=== PATIENT | female | born 1970 | race Caucasian/White ===

== ENCOUNTER 2018-06-18 08:33 | Day surgery (SDC) | payer OTHER, SELFPAY ==
[2018-06-12 12:42] VITALS: BMI 28.7
[2018-06-18] VITALS (10 sets, daily range): BP systolic 95–108; BP diastolic 60–75; PULSE 62–85; RESP 14–20; TEMP 36–36.8; O2SAT 95–100; BMI 28.7
[2018-06-18] MEDS: LACTATED RINGERS 1,000 ML 100 ML IV (08:50)
[2018-06-18] MEDS: BUPIVACAINE 0.5% W/ EPI (PF) VIAL 10 ML INJ (10:00)
--- NOTE | 2018-06-18 10:01 | SUR.OPER ---
Lithotomy on padded OR bed, head on pillow, arms secured on padded arm boards at <90 degrees abduction. Legs secured in padded yellow fins stirrups.
[2018-06-18] MEDS: HYDROMORPHONE 2 MG INJ 0.5 MG IV ×3 (10:20→10:50)
--- NOTE | 2018-06-18 10:24 | PM.OP.1 ---
Operative Date/Time/Diagnoses Date of procedure: 06/18/18 Time of procedure: 10:25 Pre-op diagnosis: pelvic pain possible endometriosis Post-op diagnosis: other ( normal pelvis without any evidence of abnormality) Procedure & Clinicians Procedure: diagnostic laparoscopy Same procedure as scheduled: Yes Indications: patient with increasing pelvic pain and dysmenorrhea as well as dyspareunia Surgeon: Juany Morales Click Yes if Unassisted: Yes Anesthesia Type: General Operative Notes Findings: Normal intra-abdominal cavity. No endometriosis, no scar tissue, no internal hernias, normal bowel surface, liver edge, gallbladder dome, appendix. normal appearance to the uterus externally except for small subserosal fibroid posterior wall. Normal fallopian tubes and ovaries. Closure Type: primary Specimen(s): none sent Estimated Blood Loss (mL): 1 Blood products transfused: none Procedure in detail: Patient was brought to the operating room where she underwent general anesthesia. She was placed in low yellowfin stirrups and prepped and draped in usual sterile fashion. No antibiotics were indicated. Pulsatile stockings were in place and functional. Warming was with blankets. A single-tooth tenaculum was placed on the anterior lip of the cervix and the cervix dilated to #6 Hegar dilator. The Sandra uterine manipulator was placed and balloon inflated with 3 mL of air. The area of the incisions were injected with half percent Marcaine with epinephrine. An incision was made in the umbilicus with a scalpel and the Verres needle placed in the abdomen. Confirmation of correct placement of the needle was performed by withdrawing on the syringe and then allowing fluid to fall freely through the needle. The abdomen was insufflated to 4 L of CO2. A 5 mm trocar was placed under direct visualization. The abdomen was examined. The CO2 was allowed to escape from the abdomen. The trochar was removed. Skin was closed with 4-0 Monocryl. The patient went to recovery room in good condition. Complications: none Condition: stable Disposition: same day surgery Plan for aftercare: follow-up in 10 days. Routine post laparoscopy care.
[2018-06-18] MEDS: OXYCODONE/ACETAMINOPHEN 5/325 TABLET 1 TAB PO ×2 (10:58→11:30)
[2018-06-18] MEDS: hydrOXYzine 50 MG/ML INJ IM (12:57)
--- NOTE | 2018-06-18 12:58 | SUR.PHASEII ---
pt c\o 8\10 pain after 2 percocett- dr maxwell notified and vistaril given per MD order
== END 2018-06-18 13:10 | disposition home or self-care (01) ==
PROVIDERS: PCP Family Medicine; Visit Provider Specialist
PROC: 0U5B4ZZ Destruction of Endometrium, Percutaneous Endoscopic Approach (ICD-10-PCS; CPT 58662; principal; 2018-06-18 09:45)
DX: D25.2 Subserosal leiomyoma of uterus (principal); Z87.891 Personal history of nicotine dependence
CPT/HCPCS: 49320; J0330; J1100; J1170; J1885; J2405; J2704; J3010; J3410

== ENCOUNTER 2018-08-28 12:45 | Outpatient (RCR) | payer OTHER, SELFPAY ==
--- NOTE | 2018-07-14 14:00 | PT.OIE ---
Current Diagnoses Muscle weakness (generalized) (07/14/18) Other specified disorders of muscle (07/14/18) Unspecified dyspareunia (07/14/18) Other symptoms and signs involving the musculoskeletal system (07/14/18) Other reduced mobility (07/14/18) Past Medical History (Last Updated 06/12/18 @ 12:48 by Mackenzie Phillip RN) Constipation (Acute) Anxiety (Chronic) Chronic headaches (Chronic) Depression (Chronic) History of heavy periods (Chronic 2016) PTSD (post-traumatic stress disorder) (Chronic) Painful menstrual periods (Chronic 2016) Shoulder pain (Chronic 2012) Substance abuse (Chronic) Fracture of right tibia and fibula (Resolved 2005) Fractures (Resolved 2005) Past Surgical History (Last Updated 07/04/18 @ 12:11 by Charis Landrum LPN) Hx of cystoscopy (Acute) Anesthesia (Resolved) History of orthopedic surgery (Resolved 2005) History of third molar tooth extraction (Resolved) S/P laparoscopic procedure (Resolved 06/18/18) Status post tonsillectomy and adenoidectomy (Resolved) Provider Visit Care Team Role Provider Type Figueroa Gann MD Primary Care Provider Physician Specialty: Family Practice Address: [address], [address] Email: Nellie Luis MD Attending Provider Physician Specialty: TASSEL SNIPPER Address: [address] [place] [address], [facility] Email: [email or web address] Physical Therapy Initial Evaluation PT-OP-A Visit Information Start: 07/14/18 10:18 Freq: Status: Active Protocol: Document 07/14/18 11:17 LRN (Rec: 07/14/18 11:32 LRN [id number]) Out-Patient Physical Therapy Visit Information Visit Information Visit Type Initial Evaluation Visit Note visits Visit Start Time 11:17 Visit Stop Time 12:10 Total Visit Minutes 53 Visit Number 1 Number of LINING CUTTER Visits 0 Evaluation Information Evaluation Date 07/14/18 PT-OP-B Current Condition Start: 07/14/18 10:18 Freq: Status: Active Protocol: Document 07/14/18 11:17 LRN (Rec: 07/14/18 11:32 LRN [id number]) Current Condition History of Current Condition Onset Date 2.5 yrs ago Current Complaints Abdominal and PF pain, pain with intercourse. History of Current Condition Pt reports she has interstitial cystitis that results in intolerable discomfort intermittently. She states for the past few weeks her pain has been tolerable. She can feel pressure in her lower abdomen and denies pain with urination . She lives in fear of the next flare up; therefore she has not been able to have intercourse. She states she is trying to work on herself and to not live in a negative head space. Uses bathroom a lot due to she drinks lots of water. When in a flare up she has constant pain in the lower pelvic region, feeling of need to urinate and pain with urination. Can be 1-2 months. Has used percocet a few months, Oxybutin, A Prior Treatments and Tests Treatments for UTI's. Laproscopy: findings of endometriosis. Treatment for Depression during pain flare ups. Future Testing and Treatments Planned She is scheduled to see an IC specialist at at end of this month. Developmental History Developmental History Pt has felt like she has had UTI's her entire life, but a year and a half ago she discovered that the UTI symptoms she was having was negative for a UTI. In 2017 she states she was bleeding for 6 months and was scheduled for a hysterectomy, but chose not to have it. She stopped her hormone medications and states her bleeding stopped. She reoports in 2018 she suffered heavy bleeding for 10 days and a laproscopy found she had small cysts and endometriosis. She is currently taking Oxybutyin, Anatryptoline, IBP and has taken Percocet for a month. Treatment Goals Patient/Caregiver Goals Goal is to thin pelvic area and gain understanding of IC. Learn techniques to help herself. Doing nothing isn't helping. Prior Functional Status Baseline Function- Work/School Leave from work from Mid May to Jul 07, 2018. Baseline Function- Other WNL with all activities except intercourse, not able to participate. Personal Factors Other Personal Factors That May Effect Works on [employer]. 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 PT-OP-I Pelvic Floor Start: 07/14/18 10:18 Freq: Status: Active Protocol: Document 07/14/18 11:17 LRN (Rec: 07/14/18 16:01 LRN [id number]) Pelvic Floor Assessment Urine Pelvic Floor Surgery No Urinary Symptoms Falling Out Feeling/Heavy Other Urinary Symptoms Falling out feeling & pressure during flare ups, present all day. Leakage Cause Cough Other Leakage Causes Light activity, strong urge, intercourse. Voiding Frequency 20x/day Nocturia Voids 2x during the night Urine Pad Type Panty Liner Pelvic Clock Pelvic Clock 12-3 Tenderness Tightness Pelvic Clock 3-6 Tenderness Tightness Pelvic Clock Other Soft tissue spongy feel of Pelvic Clock 1-6. Contraction Ability Voluntary Contraction Weak Manual Muscle Testing Left 2 Manual Muscle Testing Right 0 Manual Muscle Testing Anterior 0 Manual Muscle Testing Posterior 2 PT-OP-J Posture/Palpation/Skin Start: 07/14/18 10:18 Freq: Status: Active Protocol: Document 07/14/18 11:17 LRN (Rec: 07/14/18 16:01 LRN [id number]) Posture Evaluation Position Standing Evaluation View All positionss T-Spine Posture Flattened L-Spine Posture Increased Lordosis Shoulder Posture (R) Elevated Pelvis Posture (L) Iliac Crest Superior (L) PSIS Posterior (L) PSIS Inferior (R) ASIS Inferior Weight Distribution Weight Shifted Anterior Ankle/Foot Posture (L) Calcaneal Eversion (R) Calcaneal Eversion Comments Posture Comments C Curve of lower Thoracic spine with apex on Left. Umbilicus is shifted Left or outflare R innominate. Prone: PSIS level -> NOEMI: L PSIS is deep. Supine: R leg long -> Long Sit : Leg lengths even. Palpation Assessment Location Abdomen Palpation Location Left Abdomen and hip Palpation Findings Soft Tissue Tightness PT-OP-K Range of Motion Start: 07/14/18 10:18 Freq: Status: Active Protocol: Document 07/14/18 11:17 LRN (Rec: 07/14/18 16:01 LRN [id number]) Hip Goniometric Range of Motion Hip Measured in Degrees Right Passive Testing Position Supine Abduction 35 Internal Rotation 50 External Rotation 55 Left Passive Testing Position Supine Abduction 30 Internal Rotation 50 External Rotation 55 Hip ROM Limitations Hip ROM Limitations Soft Tissue Tightness Pain PT-OP-M Strength Start: 07/14/18 10:18 Freq: Status: Active Protocol: Document 07/14/18 11:17 LRN (Rec: 07/14/18 16:01 LRN [id number]) Trunk Strength Trunk Manual Muscle Testing Rotation Left 3 Fair Core Stabilization Pt not able to stabilize the core with testing of R hip ext strength (stabilizes with testing of L hip) and hip flexion; therefore L trunk rotation weakness is noted. Hip Strength Hip Manual Muscle Testing Right Comments Generally 5/5. Left Comments Generally 5/5. PT-OP-Q Treatments Start: 07/14/18 10:18 Freq: Status: Active Protocol: Document 07/14/18 11:17 LRN (Rec: 07/14/18 16:01 LRN [id number]) Therapeutic Exercises Supine Exercises Sympathetic system downtraining Supine Exercise Name Deep Breathing Reps/Minutes 2' Lateral Hip stretch Side left Comments Reviewed with handout Piriformis stretch Supine Exercise Name Piriformis stretch with hip ER Side right Comments Reviewed with handout Fig 4 stretch Side left Reps/Minutes 1' Sciatic n. stretch Side left Comments Reviewed with handout Self-Care/Home Management Treatment Education Patient Education Home Exercise Program Activities Self-Care/Home Management Activities HEP issued: LE neural glide, Fig 4 stretch, Piriformis ( with ER & with AD) stretch, Deep breathing. PT-OP-T Assessment and Plan Start: 07/14/18 10:18 Freq: Status: Active Protocol: Document 07/14/18 11:17 LRN (Rec: 07/14/18 16:01 LRN [id number]) Physical Therapy Assessment Rehab Potential Rehabilitation Potential Fair Evaluation Complexity Number of Personal Factors/Comorbidities 1-2 Number of Body Systems Impaired 4 or More Clinical Presentation at Evaluation Evolving Impairments Impairments Activity Tolerance Pain Posture ROM Soft Tissue Mobility Strength Other Impairments Urinary incontinence during abdominal pain flare ups. 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 Barriers to Rehabilitation Commuting from [facility] FT work Comorbidities - Intermittent Heavy bleeding Goals Five Impairment Postural changes Short Term Goal (STG) Pt will demonstrate improved pelvic and trunk posture with normalizing pelvic position and umbilical positioning. STG Duration 08/01/18 Four Impairment Symptoms of High Sympathetic Tone Short Term Goal (STG) Pt will be educated in self care techniques to downtrain her sympathetic system during times of stress and pain. STG Duration 08/15/18 Three Impairment Poor awareness of Pelvic Floor and muscle contractions Snf Goal (LTG) Pt will be able to identify proper pelvic floor and perform a PF contraction with a notable relaxation phase. 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 LTG Duration 10/10/18 One Impairment Lack of appropriate self skilled nursing program Snf Goal (LTG) Pt will be educated in an independent self care program to help her manage her pain. LTG Duration 10/10/18 Assessment Summary Assessment Pt presents today with no significant complaints of pelvic pain. She is currently not experiencing an interstitial cystitis flare up . She does appear to have a pelvic obliquity of a possible R innominate downslip and/or an anteriorly rotated and outflared innominate. Her R SIJ appears to be stuck in flexion. She has soft tissue tightness in the lower abdominal region with a L shift of her umbilicus and she has LE neural tension bilaterally. She is anxious and concerned when her next flare up will start and therefore appears to be in a high sympathetic tone state. She has difficulty with performing deep breathing properly, also indicating high sympathetic tone. Her pelvic floor has a spongy feel and is tender per digital assessment. The patient will benefit from skilled phyiscal therapy for education in use and home use of E-Stim to help manage her pain and for education to downtrain her sympathetic system. She will also benefit from education in dietary changes. She feels her primary concerns are managing her IC symptoms, but the pt would benefit from PF strengthening and manual therapy with exercise to improve posture and pelvic symmetry. The pt may require a longer rehabilitation program due to her travel, family and work challenges. Physical Therapy Plan Frequency and Duration Frequency of Treatment 1x/Week Plan of Care Start Date 07/14/18 Plan of Care End Date 10/10/18 Therapeutic Interventions Therapeutic Interventions Self-Care/Home Management Modalities Biofeedback Cold Pack/Ice Massage Electric Stimulation Hot Packs Ultrasound Next Visit Focus/Plan Next Note Type Treatment Note Next Visit Plan Review HEP issued, JMT & STM for correction of pelvic obliquities and abdominal soft tissue tightness. PF assessment per vaginal electrode, and try E-Stim if pain present. Progress home program of ex's.
--- NOTE | 2018-07-14 14:00 | PT.OIE ---
Current Diagnoses Muscle weakness (generalized) (07/14/18) Other specified disorders of muscle (07/14/18) Unspecified dyspareunia (07/14/18) Other symptoms and signs involving the musculoskeletal system (07/14/18) Other reduced mobility (07/14/18) Past Medical History (Last Updated 06/12/18 @ 12:48 by Mackenzie Phillip RN) Constipation (Acute) Anxiety (Chronic) Chronic headaches (Chronic) Depression (Chronic) History of heavy periods (Chronic 2016) PTSD (post-traumatic stress disorder) (Chronic) Painful menstrual periods (Chronic 2016) Shoulder pain (Chronic 2012) Substance abuse (Chronic) Fracture of right tibia and fibula (Resolved 2005) Fractures (Resolved 2005) Past Surgical History (Last Updated 07/04/18 @ 12:11 by Charis Landrum LPN) Hx of cystoscopy (Acute) Anesthesia (Resolved) History of orthopedic surgery (Resolved 2005) History of third molar tooth extraction (Resolved) S/P laparoscopic procedure (Resolved 06/18/18) Status post tonsillectomy and adenoidectomy (Resolved) Provider Visit Care Team Role Provider Type Figueroa Gann MD Primary Care Provider Physician Specialty: Family Practice Address: [address], [address] Email: Nellie Luis MD Attending Provider Physician Specialty: TALENT ACQUISITION RELATIONSHIP MANAGER Address: [address] [place] [address], [facility] Email: [email or web address] Physical Therapy Initial Evaluation PT-OP-A Visit Information Start: 07/14/18 10:18 Freq: Status: Active Protocol: Document 07/14/18 11:17 LRN (Rec: 07/14/18 11:32 LRN [id number]) Out-Patient Physical Therapy Visit Information Visit Information Visit Type Initial Evaluation Visit Note visits Visit Start Time 11:17 Visit Stop Time 12:10 Total Visit Minutes 53 Visit Number 1 Number of SCREEN OPERATOR Visits 0 Evaluation Information Evaluation Date 07/14/18 PT-OP-B Current Condition Start: 07/14/18 10:18 Freq: Status: Active Protocol: Document 07/14/18 11:17 LRN (Rec: 07/14/18 11:32 LRN [id number]) Current Condition History of Current Condition Onset Date 2.5 yrs ago Current Complaints Abdominal and PF pain, pain with intercourse. History of Current Condition Pt reports she has interstitial cystitis that results in intolerable discomfort intermittently. She states for the past few weeks her pain has been tolerable. She can feel pressure in her lower abdomen and denies pain with urination . She lives in fear of the next flare up; therefore she has not been able to have intercourse. She states she is trying to work on herself and to not live in a negative head space. Uses bathroom a lot due to she drinks lots of water. When in a flare up she has constant pain in the lower pelvic region, feeling of need to urinate and pain with urination. Can be 1-2 months. Has used percocet a few months, Oxybutin, A Prior Treatments and Tests Treatments for UTI's. Laproscopy: findings of endometriosis. Treatment for Depression during pain flare ups. Future Testing and Treatments Planned She is scheduled to see an IC specialist at at end of this month. Developmental History Developmental History Pt has felt like she has had UTI's her entire life, but a year and a half ago she discovered that the UTI symptoms she was having was negative for a UTI. In 2017 she states she was bleeding for 6 months and was scheduled for a hysterectomy, but chose not to have it. She stopped her hormone medications and states her bleeding stopped. She reoports in 2018 she suffered heavy bleeding for 10 days and a laproscopy found she had small cysts and endometriosis. She is currently taking Oxybutyin, Anatryptoline, IBP and has taken Percocet for a month. Treatment Goals Patient/Caregiver Goals Goal is to thin pelvic area and gain understanding of IC. Learn techniques to help herself. Doing nothing isn't helping. Prior Functional Status Baseline Function- Work/School Leave from work from Mid May to Jul 07, 2018. Baseline Function- Other WNL with all activities except intercourse, not able to participate. Personal Factors Other Personal Factors That May Effect Works on [employer]. 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 FT PT-OP-F Manual Assessment Start: 07/14/18 10:18 Freq: Status: Active Protocol: Document 07/14/18 11:17 LRN (Rec: 07/14/18 16:01 LRN [id number]) Manual Assessments Soft Tissue Assessment Soft Tissue Mobility Assessment Decreased tissue mobility of L abdomen, lateral and posterior trunk. PT-OP-I Pelvic Floor Start: 07/14/18 10:18 Freq: Status: Active Protocol: Document 07/14/18 11:17 LRN (Rec: 07/14/18 16:01 LRN [id number]) Pelvic Floor Assessment Urine Pelvic Floor Surgery No Urinary Symptoms Falling Out Feeling/Heavy Other Urinary Symptoms Falling out feeling & pressure during flare ups, present all day. Leakage Cause Cough Other Leakage Causes Light activity, strong urge, intercourse. Voiding Frequency 20x/day Nocturia Voids 2x during the night Urine Pad Type Panty Liner Pelvic Clock Pelvic Clock 12-3 Tenderness Tightness Pelvic Clock 3-6 Tenderness Tightness Pelvic Clock Other Soft tissue spongy feel of Pelvic Clock 1-6. Contraction Ability Voluntary Contraction Weak Manual Muscle Testing Left 2 Manual Muscle Testing Right 0 Manual Muscle Testing Anterior 0 Manual Muscle Testing Posterior 2 PT-OP-J Posture/Palpation/Skin Start: 07/14/18 10:18 Freq: Status: Active Protocol: Document 07/14/18 11:17 LRN (Rec: 07/14/18 16:01 LRN [id number]) Posture Evaluation Position Standing Evaluation View All positionss T-Spine Posture Flattened L-Spine Posture Increased Lordosis Shoulder Posture (R) Elevated Pelvis Posture (L) Iliac Crest Superior (L) PSIS Posterior (L) PSIS Inferior (R) ASIS Inferior Weight Distribution Weight Shifted Anterior Ankle/Foot Posture (L) Calcaneal Eversion (R) Calcaneal Eversion Comments Posture Comments C Curve of lower Thoracic spine with apex on Left. Umbilicus is shifted Left or outflare R innominate. Prone: PSIS level -> NOEMI: L PSIS is deep. Supine: R leg long -> Long Sit : Leg lengths even. Palpation Assessment Location Abdomen Palpation Location Left Abdomen and hip Palpation Findings Soft Tissue Tightness PT-OP-K Range of Motion Start: 07/14/18 10:18 Freq: Status: Active Protocol: Document 07/14/18 11:17 LRN (Rec: 07/14/18 16:01 LRN [id number]) Hip Goniometric Range of Motion Hip Measured in Degrees Right Passive Testing Position Supine Abduction 35 Internal Rotation 50 External Rotation 55 Left Passive Testing Position Supine Abduction 30 Internal Rotation 50 External Rotation 55 Hip ROM Limitations Hip ROM Limitations Soft Tissue Tightness Pain PT-OP-M Strength Start: 07/14/18 10:18 Freq: Status: Active Protocol: Document 07/14/18 11:17 LRN (Rec: 07/14/18 16:01 LRN [id number]) Trunk Strength Trunk Manual Muscle Testing Rotation Left 3 Fair Core Stabilization Pt not able to stabilize the core with testing of R hip ext strength (stabilizes with testing of L hip) and hip flexion; therefore L trunk rotation weakness is noted. Hip Strength Hip Manual Muscle Testing Right Comments Generally 5/5. Left Comments Generally 5/5. PT-OP-Q Treatments Start: 07/14/18 10:18 Freq: Status: Active Protocol: Document 07/14/18 11:17 LRN (Rec: 07/14/18 16:01 LRN [id number]) Therapeutic Exercises Supine Exercises Sympathetic system downtraining Supine Exercise Name Deep Breathing Reps/Minutes 2' Lateral Hip stretch Side left Comments Reviewed with handout Piriformis stretch Supine Exercise Name Piriformis stretch with hip ER Side right Comments Reviewed with handout Fig 4 stretch Side left Reps/Minutes 1' Sciatic n. stretch Side left Comments Reviewed with handout Self-Care/Home Management Treatment Education Patient Education Home Exercise Program Activities Self-Care/Home Management Activities HEP issued: LE neural glide, Fig 4 stretch, Piriformis ( with ER & with AD) stretch, Deep breathing. PT-OP-T Assessment and Plan Start: 07/14/18 10:18 Freq: Status: Active Protocol: Document 07/14/18 11:17 LRN (Rec: 07/14/18 16:01 LRN [id number]) Physical Therapy Assessment Rehab Potential Rehabilitation Potential Fair Evaluation Complexity Number of Personal Factors/Comorbidities 1-2 Number of Body Systems Impaired 4 or More Clinical Presentation at Evaluation Evolving Impairments Impairments Activity Tolerance Pain Posture ROM Soft Tissue Mobility Strength Other Impairments Urinary incontinence during abdominal pain flare ups. 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 Barriers to Rehabilitation Commuting from [facility] FT work Comorbidities - Intermittent Heavy bleeding Goals Five Impairment Postural changes Short Term Goal (STG) Pt will demonstrate improved pelvic and trunk posture with normalizing pelvic position and umbilical positioning. STG Duration 08/01/18 Four Impairment Symptoms of High Sympathetic Tone Short Term Goal (STG) Pt will be educated in self care techniques to downtrain her sympathetic system during times of stress and pain. STG Duration 08/15/18 Three Impairment Poor awareness of Pelvic Floor and muscle contractions Long-Term Goal (LTG) Pt will be able to identify proper pelvic floor and perform a PF contraction with a notable relaxation phase. LTG Duration 10/10/18 Two Impairment Pelvic pain Superintendent Meters Goal (LTG) Decrease pelvic pain during interstitial cystitis flare ups with pt being able to tolerate working. LTG Duration 10/10/18 One Impairment Lack of appropriate self [facility] program Long-Term Goal (LTG) Pt will be educated in an independent self care program to help her manage her pain. LTG Duration 10/10/18 Assessment Summary Assessment Pt presents today with no significant complaints of pelvic pain. She is currently not experiencing an interstitial cystitis flare up . She does appear to have a pelvic obliquity of a possible R innominate downslip and/or an anteriorly rotated and outflared innominate. Her R SIJ appears to be stuck in flexion. She has soft tissue tightness in the lower abdominal region with a L shift of her umbilicus and she has LE neural tension bilaterally. She is anxious and concerned when her next flare up will start and therefore appears to be in a high sympathetic tone state. She has difficulty with performing deep breathing properly, also indicating high sympathetic tone. Her pelvic floor has a spongy feel and is tender per digital assessment. The patient will benefit from skilled phyiscal therapy for education in use and home use of E-Stim to help manage her pain and for education to downtrain her sympathetic system. She will also benefit from education in dietary changes. She feels her primary concerns are managing her IC symptoms, but the pt would benefit from PF strengthening and manual therapy with exercise to improve posture and pelvic symmetry. The pt may require a longer rehabilitation program due to her travel, family and work challenges. Physical Therapy Plan Frequency and Duration Frequency of Treatment 1x/Week Plan of Care Start Date 07/14/18 Plan of Care End Date 09/12/18 Therapeutic Interventions Therapeutic Interventions Self-Care/Home Management Modalities Biofeedback Cold Pack/Ice Massage Electric Stimulation Hot Packs Ultrasound Next Visit Focus/Plan Next Note Type Treatment Note Next Visit Plan Review HEP issued, JMT & STM for correction of pelvic obliquities and abdominal soft tissue tightness. PF assessment per vaginal electrode, and try E-Stim if pain present. Progress home program of ex's.
--- NOTE | 2018-07-14 14:01 | PT.OPPOC ---
Current Diagnoses Muscle weakness (generalized) (07/14/18) Other specified disorders of muscle (07/14/18) Unspecified dyspareunia (07/14/18) Other symptoms and signs involving the musculoskeletal system (07/14/18) Other reduced mobility (07/14/18) Provider Visit Care Team Role Provider Type Figueroa Gann MD Primary Care Provider Physician Specialty: Family Practice Address: [address], [address] Email: Nellie Luis MD Attending Provider Physician Specialty: DIRECTOR OF CURRICULUM AND INSTRUCTION Address: [address] [place] [address], [id number] Email: [email or web address] Plan Of Care PT-OP-T Assessment and Plan Start: 07/14/18 10:18 Freq: Status: Active Protocol: Document 07/14/18 11:17 LRN (Rec: 07/14/18 16:01 LRN [id number]) Physical Therapy Assessment Rehab Potential Rehabilitation Potential Fair Evaluation Complexity Number of Personal Factors/Comorbidities 1-2 Number of Body Systems Impaired 4 or More Clinical Presentation at Evaluation Evolving Impairments Impairments Activity Tolerance Pain Posture ROM Soft Tissue Mobility Strength Other Impairments Urinary incontinence during abdominal pain flare ups. 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 Barriers to Rehabilitation Commuting from [facility] FT work Comorbidities - Intermittent Heavy bleeding Goals Five Impairment Postural changes Short Term Goal (STG) Pt will demonstrate improved pelvic and trunk posture with normalizing pelvic position and umbilical positioning. STG Duration 08/01/18 Four Impairment Symptoms of High Sympathetic Tone Short Term Goal (STG) Pt will be educated in self care techniques to downtrain her sympathetic system during times of stress and pain. STG Duration 08/15/18 Three Impairment Poor awareness of Pelvic Floor and muscle contractions Law Clerk Goal (LTG) Pt will be able to identify proper pelvic floor and perform a PF contraction with a notable relaxation phase. LTG Duration 10/10/18 Two Impairment Pelvic pain Law Clerk Goal (LTG) Decrease pelvic pain during interstitial cystitis flare ups with pt being able to tolerate working. LTG Duration 10/10/18 One Impairment Lack of appropriate self detention program Nursing Home Goal (LTG) Pt will be educated in an independent self care program to help her manage her pain. LTG Duration 10/10/18 Assessment Summary Assessment Pt presents today with no significant complaints of pelvic pain. She is currently not experiencing an interstitial cystitis flare up . She does appear to have a pelvic obliquity of a possible R innominate downslip and/or an anteriorly rotated and outflared innominate. Her R SIJ appears to be stuck in flexion. She has soft tissue tightness in the lower abdominal region with a L shift of her umbilicus and she has LE neural tension bilaterally. She is anxious and concerned when her next flare up will start and therefore appears to be in a high sympathetic tone state. She has difficulty with performing deep breathing properly, also indicating high sympathetic tone. Her pelvic floor has a spongy feel and is tender per digital assessment. The patient will benefit from skilled phyiscal therapy for education in use and home use of E-Stim to help manage her pain and for education to downtrain her sympathetic system. She will also benefit from education in dietary changes. She feels her primary concerns are managing her IC symptoms, but the pt would benefit from PF strengthening and manual therapy with exercise to improve posture and pelvic symmetry. The pt may require a longer rehabilitation program due to her travel, family and work challenges. Physical Therapy Plan Frequency and Duration Frequency of Treatment 1x/Week Plan of Care Start Date 07/14/18 Plan of Care End Date 10/10/18 Therapeutic Interventions Therapeutic Interventions Self-Care/Home Management Modalities Biofeedback Cold Pack/Ice Massage Electric Stimulation Hot Packs Ultrasound Next Visit Focus/Plan Next Note Type Treatment Note Next Visit Plan Review HEP issued, JMT & STM for correction of pelvic obliquities and abdominal soft tissue tightness. PF assessment per vaginal electrode, and try E-Stim if pain present. Progress home program of ex's. Plan of Care Dates Plan of Care Start Date 07/14/18 Plan of Care End Date 10/10/18 Please Sign and Return: I have reviewed this Plan of Care and certify that the skilled therapy services above are required to meet the patient?s needs. Physician Signature Date Printed Name and Credentials Clinical Instructor Signature Printed Name and Credentials
--- NOTE | 2018-07-18 19:52 | PT.OPPOC ---
Current Diagnoses Muscle weakness (generalized) (07/14/18) Other specified disorders of muscle (07/14/18) Unspecified dyspareunia (07/14/18) Other symptoms and signs involving the musculoskeletal system (07/14/18) Other reduced mobility (07/14/18) Provider Visit Care Team Role Provider Type Figueroa Gann MD Primary Care Provider Physician Specialty: Family Practice Address: [address], [address] Email: Nellie Luis MD Attending Provider Physician Specialty: RAILCAR SWITCHER Address: [address] [place] [address], [id number] Email: [email or web address] Plan Of Care PT-OP-T Assessment and Plan Start: 07/14/18 10:18 Freq: Status: Active Protocol: Document 07/14/18 11:17 LRN (Rec: 07/14/18 16:01 LRN [id number]) Physical Therapy Assessment Rehab Potential Rehabilitation Potential Fair Evaluation Complexity Number of Personal Factors/Comorbidities 1-2 Number of Body Systems Impaired 4 or More Clinical Presentation at Evaluation Evolving Impairments Impairments Activity Tolerance Pain Posture ROM Soft Tissue Mobility Strength Other Impairments Urinary incontinence during abdominal pain flare ups. 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 Barriers to Rehabilitation Commuting from [facility] FT work Comorbidities - Intermittent Heavy bleeding Goals Five Impairment Postural changes Short Term Goal (STG) Pt will demonstrate improved pelvic and trunk posture with normalizing pelvic position and umbilical positioning. STG Duration 08/01/18 Four Impairment Symptoms of High Sympathetic Tone Short Term Goal (STG) Pt will be educated in self care techniques to downtrain her sympathetic system during times of stress and pain. STG Duration 08/15/18 Three Impairment Poor awareness of Pelvic Floor and muscle contractions Thread Pulling Machine Attendant Goal (LTG) Pt will be able to identify proper pelvic floor and perform a PF contraction with a notable relaxation phase. LTG Duration 10/10/18 Two Impairment Pelvic pain Thread Pulling Machine Attendant Goal (LTG) Decrease pelvic pain during interstitial cystitis flare ups with pt being able to tolerate working. LTG Duration 10/10/18 One Impairment Lack of appropriate self jail program Intermediate Goal (LTG) Pt will be educated in an independent self care program to help her manage her pain. LTG Duration 10/10/18 Assessment Summary Assessment Pt presents today with no significant complaints of pelvic pain. She is currently not experiencing an interstitial cystitis flare up . She does appear to have a pelvic obliquity of a possible R innominate downslip and/or an anteriorly rotated and outflared innominate. Her R SIJ appears to be stuck in flexion. She has soft tissue tightness in the lower abdominal region with a L shift of her umbilicus and she has LE neural tension bilaterally. She is anxious and concerned when her next flare up will start and therefore appears to be in a high sympathetic tone state. She has difficulty with performing deep breathing properly, also indicating high sympathetic tone. Her pelvic floor has a spongy feel and is tender per digital assessment. The patient will benefit from skilled phyiscal therapy for education in use and home use of E-Stim to help manage her pain and for education to downtrain her sympathetic system. She will also benefit from education in dietary changes. She feels her primary concerns are managing her IC symptoms, but the pt would benefit from PF strengthening and manual therapy with exercise to improve posture and pelvic symmetry. The pt may require a longer rehabilitation program due to her travel, family and work challenges. Physical Therapy Plan Frequency and Duration Frequency of Treatment 1x/Week Plan of Care Start Date 07/14/18 Plan of Care End Date 10/10/18 Therapeutic Interventions Therapeutic Interventions Self-Care/Home Management Modalities Biofeedback Cold Pack/Ice Massage Electric Stimulation Hot Packs Ultrasound Next Visit Focus/Plan Next Note Type Treatment Note Next Visit Plan Review HEP issued, JMT & STM for correction of pelvic obliquities and abdominal soft tissue tightness. PF assessment per vaginal electrode, and try E-Stim if pain present. Progress home program of ex's. Plan of Care Dates Plan of Care Start Date 07/14/18 Plan of Care End Date 10/10/18 Please Sign and Return: I have reviewed this Plan of Care and certify that the skilled therapy services above are required to meet the patient?s needs. Physician Signature Date Printed Name and Credentials Clinical Instructor Signature Printed Name and Credentials
--- NOTE | 2018-07-21 14:21 | PT.OTN ---
Current Diagnoses Other specified disorders of muscle (07/21/18) Physical Therapy Treatment Note PT-OP-A Visit Information Start: 07/14/18 10:18 Freq: Status: Active Protocol: Document 07/21/18 12:46 LRN (Rec: 07/21/18 13:57 LRN [id number]) Out-Patient Physical Therapy Visit Information Visit Information Visit Type Treatment Note Visit Note 55 visits allowed Visit Start Time 12:46 Visit Stop Time 13:35 Total Visit Minutes 49 Visit Number 2 Number of LEAD CARGOMAN Visits 0 Evaluation Information Evaluation Date 07/14/18 PT-OP-B Current Condition Start: 07/14/18 10:18 Freq: Status: Active Protocol: Document 07/14/18 11:17 LRN (Rec: 07/14/18 11:32 LRN [id number]) Current Condition History of Current Condition Onset Date 2.5 yrs ago Current Complaints Abdominal and PF pain, pain with intercourse. History of Current Condition Pt reports she has interstitial cystitis that results in intolerable discomfort intermittently. She states for the past few weeks her pain has been tolerable. She can feel pressure in her lower abdomen and denies pain with urination . She lives in fear of the next flare up; therefore she has not been able to have intercourse. She states she is trying to work on herself and to not live in a negative head space. Uses bathroom a lot due to she drinks lots of water. When in a flare up she has constant pain in the lower pelvic region, feeling of need to urinate and pain with urination. Can be 1-2 months. Has used percocet a few months, Oxybutin, A Prior Treatments and Tests Treatments for UTI's. Laproscopy: findings of endometriosis. Treatment for Depression during pain flare ups. Future Testing and Treatments Planned She is scheduled to see an IC specialist at at end of this month. Developmental History Developmental History Pt has felt like she has had UTI's her entire life, but a year and a half ago she discovered that the UTI symptoms she was having was negative for a UTI. In 2017 she states she was bleeding for 6 months and was scheduled for a hysterectomy, but chose not to have it. She stopped her hormone medications and states her bleeding stopped. She reoports in 2018 she suffered heavy bleeding for 10 days and a laproscopy found she had small cysts and endometriosis. She is currently taking Oxybutyin, Anatryptoline, IBP and has taken Percocet for a month. Treatment Goals Patient/Caregiver Goals Goal is to thin pelvic area and gain understanding of IC. Learn techniques to help herself. Doing nothing isn't helping. Prior Functional Status Baseline Function- Work/School Leave from work from Mid May to Jul 07, 2018. Baseline Function- Other WNL with all activities except intercourse, not able to participate. Personal Factors Other Personal Factors That May Effect Works on [employer]. 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 Period is getting ready to start. Feeling of fullness. PT-OP-F Manual Assessment Start: 07/14/18 10:18 Freq: Status: Active Protocol: Document 07/21/18 12:46 LRN (Rec: 07/21/18 13:57 LRN [id number]) Manual Assessments Soft Tissue Assessment Soft Tissue Mobility Assessment Decreased tissue mobility of L abdomen, lateral and posterior trunk. PT-OP-I Pelvic Floor Start: 07/14/18 10:18 Freq: Status: Active Protocol: Document 07/21/18 12:46 LRN (Rec: 07/21/18 13:57 LRN [id number]) Pelvic Floor Assessment SEMG (uV) Baseline 2.1 Quick Contraction 13.8 10 Second Contraction 20.7 Relaxation Good Holding Good SEMG Stability of Rest Good PT-OP-J Posture/Palpation/Skin Start: 07/14/18 10:18 Freq: Status: Active Protocol: Document 07/21/18 12:46 LRN (Rec: 07/21/18 13:57 LRN [id number]) Posture Evaluation Comments Posture Comments C Curve of lower Thoracic spine with apex on Left. Umbilicus is shifted Left or outflare R innominate. Supine: R leg long -> Long Sit : Leg lengths even. Palpation Assessment Location Abdomen Palpation Location Left Abdomen and hip Palpation Findings Soft Tissue Tightness Palpation Details Tight with superior, medial and CW motion. PT-OP-K Range of Motion Start: 07/14/18 10:18 Freq: Status: Active Protocol: Document 07/14/18 11:17 LRN (Rec: 07/14/18 16:01 LRN [id number]) Hip Goniometric Range of Motion Hip Measured in Degrees Right Passive Testing Position Supine Abduction 35 Internal Rotation 50 External Rotation 55 Left Passive Testing Position Supine Abduction 30 Internal Rotation 50 External Rotation 55 Hip ROM Limitations Hip ROM Limitations Soft Tissue Tightness Pain PT-OP-M Strength Start: 07/14/18 10:18 Freq: Status: Active Protocol: Document 07/14/18 11:17 LRN (Rec: 07/14/18 16:01 LRN [id number]) Trunk Strength Trunk Manual Muscle Testing Rotation Left 3 Fair Core Stabilization Pt not able to stabilize the core with testing of R hip ext strength (stabilizes with testing of L hip) and hip flexion; therefore L trunk rotation weakness is noted. Hip Strength Hip Manual Muscle Testing Right Comments Generally 5/5. Left Comments Generally 5/5. PT-OP-Q Treatments Start: 07/14/18 10:18 Freq: Status: Active Protocol: Document 07/21/18 12:46 LRN (Rec: 07/21/18 13:57 LRN [id number]) Therapeutic Exercises Supine Exercises PF contraction Supine Exercise Name Quick flicks and Long holds with bolster under legs. Equipment Used EMG Biofeedback Comments training for PF contraction Sympathetic system downtraining Supine Exercise Name Deep Breathing Lateral Hip stretch Side left Comments Reviewed with handout Piriformis stretch Supine Exercise Name Piriformis stretch with hip ER Side bilateral Comments R>L Fig 4 stretch Side bilateral Reps/Minutes 1' Comments L>R Sciatic n. stretch Side bilateral Comments L>R Manual Therapy Treatment Soft Tissue Mobilization L lower Abdomen Body Location L Abdomen Mobilization Type Myofascial Release Body Position Supine Comments Depth: Superficial to moderate for: superior, medial, CW mobility. Manual Techniques Correction of R innominate outflare Type MET Body Position Supine Reps/Duration 8' Comments Correction of R innominate outflare that corrected R innominate anterior rotation. Self-Care/Home Management Treatment Education Patient Education Home Exercise Program Other Education Educated and discussed pt IC diet. Pt states she is following the Keto and IC diet . Discussed PF contraction and outcome. Activities Self-Care/Home Management Activities Issued Bladder Diary for pt to complete and Issued/reviewed Kegel ex's. PT-OP-T Assessment and Plan Start: 07/14/18 10:18 Freq: Status: Active Protocol: Document 07/21/18 12:46 LRN (Rec: 07/21/18 13:57 LRN [id number]) Physical Therapy Assessment Impairments Impairments Activity Tolerance Pain Posture ROM Soft Tissue Mobility Strength Other Impairments Urinary incontinence during abdominal pain flare ups. 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 Barriers to Rehabilitation Commuting from [facility] work Comorbidities - Intermittent Heavy bleeding Goals Five Impairment Postural changes Short Term Goal (STG) Pt will demonstrate improved pelvic and trunk posture with normalizing pelvic position and umbilical positioning. STG Duration 08/01/18 Four Impairment Symptoms of High Sympathetic Tone Short Term Goal (STG) Pt will be educated in self care techniques to downtrain her sympathetic system during times of stress and pain. (: Deep breathing training ). STG Duration 08/15/18 Three Impairment Poor awareness of Pelvic Floor and muscle contractions Intermediate Goal (LTG) Pt will be able to identify proper pelvic floor and perform a PF contraction with a notable relaxation phase. ( 07/21/18: Pt substitutes with abdominal and gluteal muscles) LTG Duration 10/10/18 Two Impairment Pelvic pain Barge Hand Goal (LTG) Decrease pelvic pain during interstitial cystitis flare ups with pt being able to tolerate working. LTG Duration 10/10/18 One Impairment Lack of appropriate self senior care program Intermediate Goal (LTG) Pt will be educated in an independent self care program to help her manage her pain. (07/22: Hip stretches and Kegels issued). LTG Duration 10/10/18 Progress Towards Goals Progress Towards Goals Progressing Toward Goals Assessment Summary Assessment No pelvic pain, not in flare up. Pelvic obliquity corrected with MET for a R innominate outflare and STM of L abdomen. Sacrum not checked today. Pt feeling like period starting soon, but no pelvic pain. Physical Therapy Plan Frequency and Duration Frequency of Treatment 1x/Week Plan of Care Start Date 07/14/18 Plan of Care End Date 10/10/18 Therapeutic Interventions Therapeutic Interventions Self-Care/Home Management Modalities Biofeedback Cold Pack/Ice Massage Electric Stimulation Hot Packs Ultrasound Next Visit Focus/Plan Next Note Type Treatment Note Next Visit Plan Review HEP of Kegels & Deep Breathing, monitor for hip stretches; JMT & STM for correction of pelvic obliquities and abdominal soft tissue tightness as needed. Check if sacrum is stuck in flexion on left. Try E-Stim if pain present and downtraining sympathetic nervous system using biofeedback, but if on period progress pelvic/core symmetry and stabilization. Progress home program of ex's.
--- NOTE | 2018-08-11 14:37 | PT.OTN ---
Current Diagnoses Other specified disorders of muscle (08/11/18) Physical Therapy Treatment Note PT-OP-A Visit Information Start: 07/14/18 10:18 Freq: Status: Active Protocol: Document 08/11/18 10:52 LRN (Rec: 08/11/18 11:24 LRN [id number]) Out-Patient Physical Therapy Visit Information Visit Information Visit Type Treatment Note Visit Note 55 visits allowed Visit Start Time 10:52 Visit Stop Time 11:24 Total Visit Minutes 32 Visit Number 3 Number of VP PURCHASING Visits 0 Evaluation Information Evaluation Date 07/14/18 PT-OP-B Current Condition Start: 07/14/18 10:18 Freq: Status: Active Protocol: Document 07/14/18 11:17 LRN (Rec: 07/14/18 11:32 LRN [id number]) Current Condition History of Current Condition Onset Date 2.5 yrs ago Current Complaints Abdominal and PF pain, pain with intercourse. History of Current Condition Pt reports she has interstitial cystitis that results in intolerable discomfort intermittently. She states for the past few weeks her pain has been tolerable. She can feel pressure in her lower abdomen and denies pain with urination . She lives in fear of the next flare up; therefore she has not been able to have intercourse. She states she is trying to work on herself and to not live in a negative head space. Uses bathroom a lot due to she drinks lots of water. When in a flare up she has constant pain in the lower pelvic region, feeling of need to urinate and pain with urination. Can be 1-2 months. Has used percocet a few months, Oxybutin, A Prior Treatments and Tests Treatments for UTI's. Laproscopy: findings of endometriosis. Treatment for Depression during pain flare ups. Future Testing and Treatments Planned She is scheduled to see an IC specialist at at end of this month. Developmental History Developmental History Pt has felt like she has had UTI's her entire life, but a year and a half ago she discovered that the UTI symptoms she was having was negative for a UTI. In 2017 she states she was bleeding for 6 months and was scheduled for a hysterectomy, but chose not to have it. She stopped her hormone medications and states her bleeding stopped. She reoports in 2018 she suffered heavy bleeding for 10 days and a laproscopy found she had small cysts and endometriosis. She is currently taking Oxybutyin, Anatryptoline, IBP and has taken Percocet for a month. Treatment Goals Patient/Caregiver Goals Goal is to thin pelvic area and gain understanding of IC. Learn techniques to help herself. Doing nothing isn't helping. Prior Functional Status Baseline Function- Work/School Leave from work from Mid May to Jul 07, 2018. Baseline Function- Other WNL with all activities except intercourse, not able to participate. Personal Factors Other Personal Factors That May Effect Works on [employer]. 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 Pressure and burning when going to the bathroom, and frequent urination. Has had 3 good weeks. Had [place], and took noew suppliements, that was the only things different. Hasn't had therapy since 07/21/18. PT-OP-F Manual Assessment Start: 07/14/18 10:18 Freq: Status: Active Protocol: Document 07/21/18 12:46 LRN (Rec: 07/21/18 13:57 LRN [id number]) Manual Assessments Soft Tissue Assessment Soft Tissue Mobility Assessment Decreased tissue mobility of L abdomen, lateral and posterior trunk. PT-OP-I Pelvic Floor Start: 07/14/18 10:18 Freq: Status: Active Protocol: Document 07/21/18 12:46 LRN (Rec: 07/21/18 13:57 LRN [id number]) Pelvic Floor Assessment SEMG (uV) Baseline 2.1 Quick Contraction 13.8 10 Second Contraction 20.7 Relaxation Good Holding Good SEMG Stability of Rest Good PT-OP-J Posture/Palpation/Skin Start: 07/14/18 10:18 Freq: Status: Active Protocol: Document 07/21/18 12:46 LRN (Rec: 07/21/18 13:57 LRN [id number]) Posture Evaluation Comments Posture Comments C Curve of lower Thoracic spine with apex on Left. Umbilicus is shifted Left or outflare R innominate. Supine: R leg long -> Long Sit : Leg lengths even. Palpation Assessment Location Abdomen Palpation Location Left Abdomen and hip Palpation Findings Soft Tissue Tightness Palpation Details Tight with superior, medial and CW motion. PT-OP-K Range of Motion Start: 07/14/18 10:18 Freq: Status: Active Protocol: Document 07/14/18 11:17 LRN (Rec: 07/14/18 16:01 LRN [id number]) Hip Goniometric Range of Motion Hip Measured in Degrees Right Passive Testing Position Supine Abduction 35 Internal Rotation 50 External Rotation 55 Left Passive Testing Position Supine Abduction 30 Internal Rotation 50 External Rotation 55 Hip ROM Limitations Hip ROM Limitations Soft Tissue Tightness Pain PT-OP-M Strength Start: 07/14/18 10:18 Freq: Status: Active Protocol: Document 07/14/18 11:17 LRN (Rec: 07/14/18 16:01 LRN [id number]) Trunk Strength Trunk Manual Muscle Testing Rotation Left 3 Fair Core Stabilization Pt not able to stabilize the core with testing of R hip ext strength (stabilizes with testing of L hip) and hip flexion; therefore L trunk rotation weakness is noted. Hip Strength Hip Manual Muscle Testing Right Comments Generally 5/5. Left Comments Generally 5/5. PT-OP-Q Treatments Start: 07/14/18 10:18 Freq: Status: Active Protocol: Document 08/11/18 10:52 LRN (Rec: 08/11/18 14:23 LRN [id number]) Therapeutic Exercises Supine Exercises PF stabilization Supine Exercise Name LE Roll in/out Side bilateral Reps/Minutes 10x Manual Therapy Treatment Soft Tissue Mobilization Bowel Stim massage Body Location Abdomen Mobilization Type Other Intensity/Depth Superficial Body Position Supine L lower Abdomen Body Location L Abdomen Mobilization Type Myofascial Release Body Position Supine Comments Depth: Superficial to moderate for: superior, medial, CW mobility. Manual Techniques Correction of R innominate outflare Type MET Body Position Supine Reps/Duration 8' Comments Correction of R innominate outflare that corrected R innominate anterior rotation. Self-Care/Home Management Treatment Education Patient Education Home Exercise Program Activities Self-Care/Home Management Activities Issued and reviewed Bowel stim handout. PT-OP-R Modalities Start: 07/14/18 10:18 Freq: Status: Active Protocol: Document 08/11/18 10:52 LRN (Rec: 08/11/18 14:23 LRN [id number]) Electric Stimulation Electric Stimulation PF Stimulation Body Location Pelvic Floor Duration (Minutes) 10 Frequency 100 Pulse Rate 10:10 Patient Position Supine Comments Pt showed good tolerance. PT-OP-T Assessment and Plan Start: 07/14/18 10:18 Freq: Status: Active Protocol: Document 08/11/18 10:52 LRN (Rec: 08/11/18 11:24 LRN [id number]) Physical Therapy Assessment Goals Five Impairment Postural changes Short Term Goal (STG) Pt will demonstrate improved pelvic and trunk posture with normalizing pelvic position and umbilical positioning. STG Duration 08/01/18 Four Impairment Symptoms of High Sympathetic Tone Short Term Goal (STG) Pt will be educated in self care techniques to downtrain her sympathetic system during times of stress and pain. (: Deep breathing training ). STG Duration 08/15/18 Three Impairment Poor awareness of Pelvic Floor and muscle contractions Group Home Goal (LTG) Pt will be able to identify proper pelvic floor and perform a PF contraction with a notable relaxation phase. ( 07/21/18: Pt substitutes with abdominal and gluteal muscles) LTG Duration 10/10/18 Two Impairment Pelvic pain Railway Equipment Operator Goal (LTG) Decrease pelvic pain during interstitial cystitis flare ups with pt being able to tolerate working. LTG Duration 10/10/18 One Impairment Lack of appropriate self longterm program Railway Equipment Operator Goal (LTG) Pt will be educated in an independent self care program to help her manage her pain. (07/22: Hip stretches and Kegels issued). LTG Duration 10/10/18 Assessment Summary Assessment Pt was 25' late. She appears to have possible GI pain in the LLQ of abdomen. She had an outflare and anterior rotation of the R innominate that was corrected, but win chacho her R knee was taller than the left, possibly from tall lower leg. Pt has hx of Tib/Fib fracture with jules in leg. Sacrum not checked due to pt abdominal pain complaints. Physical Therapy Plan Frequency and Duration Frequency of Treatment 1x/Week Plan of Care Start Date 07/14/18 Plan of Care End Date 10/10/18 Next Visit Focus/Plan Next Note Type Treatment Note Next Visit Plan Pt would like 1 more visit in 2 weeks to reassess. Pt prefers to be on home care due to difficulty with transportation from [facility] and not wanting to miss work. Assess benefit of PF E -Stim, recheck, train pt in assess and treatment for SIJ obliquity, probable DC to self care and HEP.
--- NOTE | 2018-08-28 14:18 | PT.OTN ---
Current Diagnoses Other specified disorders of muscle (08/28/18) Physical Therapy Treatment Note PT-OP-A Visit Information Start: 07/14/18 10:18 Freq: Status: Active Protocol: Document 08/28/18 12:47 LRN (Rec: 08/28/18 13:37 LRN [id number]) Out-Patient Physical Therapy Visit Information Visit Information Visit Type Treatment Note Visit Start Time 12:47 Visit Stop Time 13:37 Total Visit Minutes 50 Visit Number 4 Number of MANAGER ECONOMIC Visits 0 Evaluation Information Evaluation Date 07/14/18 PT-OP-B Current Condition Start: 07/14/18 10:18 Freq: Status: Active Protocol: Document 07/14/18 11:17 LRN (Rec: 07/14/18 11:32 LRN [id number]) Current Condition History of Current Condition Onset Date 2.5 yrs ago Current Complaints Abdominal and PF pain, pain with intercourse. History of Current Condition Pt reports she has interstitial cystitis that results in intolerable discomfort intermittently. She states for the past few weeks her pain has been tolerable. She can feel pressure in her lower abdomen and denies pain with urination . She lives in fear of the next flare up; therefore she has not been able to have intercourse. She states she is trying to work on herself and to not live in a negative head space. Uses bathroom a lot due to she drinks lots of water. When in a flare up she has constant pain in the lower pelvic region, feeling of need to urinate and pain with urination. Can be 1-2 months. Has used percocet a few months, Oxybutin, A Prior Treatments and Tests Treatments for UTI's. Laproscopy: findings of endometriosis. Treatment for Depression during pain flare ups. Future Testing and Treatments Planned She is scheduled to see an IC specialist at at end of this month. Developmental History Developmental History Pt has felt like she has had UTI's her entire life, but a year and a half ago she discovered that the UTI symptoms she was having was negative for a UTI. In 2017 she states she was bleeding for 6 months and was scheduled for a hysterectomy, but chose not to have it. She stopped her hormone medications and states her bleeding stopped. She reoports in 2018 she suffered heavy bleeding for 10 days and a laproscopy found she had small cysts and endometriosis. She is currently taking Oxybutyin, Anatryptoline, IBP and has taken Percocet for a month. Treatment Goals Patient/Caregiver Goals Goal is to thin pelvic area and gain understanding of IC. Learn techniques to help herself. Doing nothing isn't helping. Prior Functional Status Baseline Function- Work/School Leave from work from Mid May to Jul 07, 2018. Baseline Function- Other WNL with all activities except intercourse, not able to participate. Personal Factors Other Personal Factors That May Effect Works on [employer]. 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 FT PT-OP-C Subjective Start: 07/14/18 10:18 Freq: Status: Active Protocol: Document 08/28/18 12:47 LRN (Rec: 08/28/18 13:37 LRN [id number]) OP-PT Subjective Patient Comments Patient Comments Has not tried intercourse. PT-OP-F Manual Assessment Start: 07/14/18 10:18 Freq: Status: Active Protocol: Document 08/28/18 12:47 LRN (Rec: 08/28/18 13:51 LRN [id number]) Manual Assessments Soft Tissue Assessment Soft Tissue Mobility Assessment Decreased tissue mobility of L abdomen, lateral and posterior trunk. PT-OP-I Pelvic Floor Start: 07/14/18 10:18 Freq: Status: Active Protocol: Document 08/28/18 12:47 LRN (Rec: 08/28/18 13:37 LRN [id number]) Pelvic Floor Assessment Pelvic Clock Pelvic Clock 3-6 Tenderness Pelvic Clock Other Soft tissue spongy feel of Pelvic Clock 1-6. PT-OP-J Posture/Palpation/Skin Start: 07/14/18 10:18 Freq: Status: Active Protocol: Document 08/28/18 12:47 LRN (Rec: 08/28/18 13:51 LRN [id number]) Posture Evaluation Comments Posture Comments C Curve of lower Thoracic spine with apex on Left. Umbilicus is shifted Left or outflare R innominate. Supine: Leg lengths even. Palpation Assessment Location Abdomen Palpation Location Left Abdomen and hip Palpation Findings Soft Tissue Tightness Palpation Details Tight with superior, medial and CW motion. PT-OP-K Range of Motion Start: 07/14/18 10:18 Freq: Status: Active Protocol: Document 07/14/18 11:17 LRN (Rec: 07/14/18 16:01 LRN [id number]) Hip Goniometric Range of Motion Hip Measured in Degrees Right Passive Testing Position Supine Abduction 35 Internal Rotation 50 External Rotation 55 Left Passive Testing Position Supine Abduction 30 Internal Rotation 50 External Rotation 55 Hip ROM Limitations Hip ROM Limitations Soft Tissue Tightness Pain PT-OP-M Strength Start: 07/14/18 10:18 Freq: Status: Active Protocol: Document 07/14/18 11:17 LRN (Rec: 07/14/18 16:01 LRN [id number]) Trunk Strength Trunk Manual Muscle Testing Rotation Left 3 Fair Core Stabilization Pt not able to stabilize the core with testing of R hip ext strength (stabilizes with testing of L hip) and hip flexion; therefore L trunk rotation weakness is noted. Hip Strength Hip Manual Muscle Testing Right Comments Generally 5/5. Left Comments Generally 5/5. PT-OP-Q Treatments Start: 07/14/18 10:18 Freq: Status: Active Protocol: Document 08/28/18 12:47 LRN (Rec: 08/28/18 13:37 LRN [id number]) Therapeutic Exercises Supine Exercises Happy Baby Pose Comments Reviewed PF contraction Supine Exercise Name Quick flicks and Long holds with bolster under legs. Equipment Used EMG Biofeedback Comments training for PF contraction Sympathetic system downtraining Supine Exercise Name Deep Breathing Comments Reviewed Prone Exercises NOEMI Abdominal stretch Comments Reviewed Manual Therapy Treatment Soft Tissue Mobilization PF stretch with Dilator Body Location PF Mobilization Type Sustained Pressure Intensity/Depth Superficial Body Position Supine Comments Stretch with Medium Dilator. L lower Abdomen Body Location L Abdomen Mobilization Type Myofascial Release Body Position Supine Comments Check and reviewed with pt self care mobilization. Self-Care/Home Management Treatment Education Patient Education Home Exercise Program Posture Other Education HEP issued: Happy Baby Pose, NOEMI for abdominal stretch; discussed correction for L innominate inflare. I/S pt in safe and proper use of medium sized dilator with dilator issued. Activities Self-Care/Home Management Activities Hand out issued for Home vaginal E-Stim unit , with parameters given (100pps, 10 on:10 off cycle, 10 minutes). PT-OP-R Modalities Start: 07/14/18 10:18 Freq: Status: Active Protocol: Document 08/11/18 10:52 LRN (Rec: 08/11/18 14:23 LRN [id number]) Electric Stimulation Electric Stimulation PF Stimulation Body Location Pelvic Floor Duration (Minutes) 10 Frequency 100 Pulse Rate 10:10 Patient Position Supine Comments Pt showed good tolerance. PT-OP-T Assessment and Plan Start: 07/14/18 10:18 Freq: Status: Active Protocol: Document 08/28/18 12:47 LRN (Rec: 08/28/18 13:37 LRN [id number]) Physical Therapy Assessment Goals Five Impairment Postural changes Short Term Goal (STG) Pt will demonstrate improved pelvic and trunk posture with normalizing pelvic position and umbilical positioning. STG Duration 08/01/18 Improved pelvic positioning, goal not met. Four Impairment Symptoms of High Sympathetic Tone Short Term Goal (STG) Pt will be educated in self care techniques to downtrain her sympathetic system during times of stress and pain. (: Deep breathing training ). STG Duration 08/15/18 GOAL MET Three Impairment Poor awareness of Pelvic Floor and muscle contractions Intermediate Goal (LTG) Pt will be able to identify proper pelvic floor and perform a PF contraction with a notable relaxation phase. ( 07/21/18: Pt substitutes with abdominal and gluteal muscles) LTG Duration 10/10/18 GOAL PARTIALLY MET Two Impairment Pelvic pain Intermediate Goal (LTG) Decrease pelvic pain during interstitial cystitis flare ups with pt being able to tolerate working. LTG Duration 10/10/18 GOAL MET THUS FAR. One Impairment Lack of appropriate self snf program Intermediate Goal (LTG) Pt will be educated in an independent self care program to help her manage her pain. (07/22: Hip stretches and Kegels issued). LTG Duration 10/10/18 GOAL MET. Assessment Summary Assessment Pt attends for last visit due to difficulties with being able to attend therapy since she is coming from [facility]. She indicates she has not had a severe cystitis flare up for the past 3 months and feels confident that she can manage her pain no that she has been educated in a self care program. She will consider an E-Stim home unit, but at this time feels finances are a problem. Her pelvic pain can be managed at this time on a home program. She has been able to decrease her resting tone; therefore her pain level appears to be down. The pt is ready to be placed on her home program. Physical Therapy Plan Discharge Physical Therapy Discharge Reasons Patient Request Discharge Comments Goals Partially met. Pt is ready to be placed on a home self care program. No further therapy is planned. Thank you for referring this patient for her physical therapy.
== END 2018-10-03 13:40 ==
LOC: PHYS 12:45
PROVIDERS: PCP Family Medicine; Visit Provider Obstetrics & Gynecology
DX: M62.89 Other specified disorders of muscle (principal)
CPT/HCPCS: 97032; 97110; 97140; 97161; 97535

== ENCOUNTER → 2018-11-14 10:17 | Outpatient (CLI) | payer OTHER, SELFPAY ==
--- NOTE | 2018-11-14 | DI.US.S_ITS ---
PROCEDURE: US PELVIC COMPLETE INDICATIONS: PELVIC PAIN TECHNIQUE: Real-time scanning was performed of the pelvic organs, with image documentation. Additional endovaginal scanning was necessary due to incomplete visualization of the adnexal and endometrial structures by transabdominal scanning. COMPARISON: [facility], US, US PELVIC COMPLETE, 06/06/2018, 8:27. FINDINGS: Transabdominal scanning: Limited scanning through the kidneys shows no hydronephrosis. No pathologic free abdominal or pelvic fluid. Endovaginal scanning: Uterus: Uterus is normal in size at 7.4 x 3.8 x 5.3 cm. The endometrium measures 4 mm in combined thickness. Ovaries: The right ovary measures 1.6 x 1.1 cm. The left ovary measures 1.9 x 1.4 x 2.5 cm. Both ovaries are normal in sonographic appearance. IMPRESSION: Normal pelvic ultrasound Dictated by: David David M.D. on 11/14/2018 at 15:52 Approved by: David David M.D. on 11/14/2018 at 15:55
== END ==
PROVIDERS: PCP Family Medicine; Visit Provider Nurse Practitioner Family
DX: R10.2 Pelvic and perineal pain (principal)
CPT/HCPCS: 76830; 76856

== ENCOUNTER → 2019-01-09 12:23 | Outpatient (CLI) | payer OTHER, SELFPAY ==
--- NOTE | 2019-01-09 | DI.MRI.S_ITS ---
PROCEDURE: MR CERVICAL SPINE WO CON INDICATIONS: CERVICAL RADICULOPATHY TECHNIQUE: Noncontrast sagittal T1 spin echo and T2 fast spin echo, sagittal STIR, foraminal oblique sagittal T2 fast spin echo, and axial gradient echo or T2 fast spin echo through the cervical spine. COMPARISON: [facility], CT, C-SPINE WITHOUT CONTRAST, 07/04/2016, 11:38. FINDINGS: Image quality: Excellent. Alignment and Curvature: There is loss of normal cervical lordosis. Bone Marrow: Marrow demonstrates normal overall signal. Spinal Cord: Visualized spinal cord has normal size and signal. No cerebellar tonsillar herniation. Paraspinous Soft Tissues: No paravertebral masses. Prevertebral soft tissues are normal in thickness. C2-C3: Normal appearance. C3-C4: Mild disc desiccation. Mild diffuse disc bulge. Congenital canal stenosis. There is overall moderate canal stenosis. No foraminal stenosis. C4-C5: Congenital canal stenosis. Moderate disc desiccation. Mild diffuse disc bulge with superimposed left paracentral broad-based protrusion. Moderate to severe canal stenosis. Mild facet and uncovertebral hypertrophy. Minimal left cord flattening. Mild left foraminal stenosis. No right foraminal stenosis. C5-C6: Congenital canal stenosis. Moderate disc desiccation. Mild diffuse disc bulge with superimposed left paracentral broad-based protrusion. Mild facet and uncovertebral hypertrophy. Moderate to severe canal stenosis. Minimal anterior cord flattening. Mild bilateral foraminal stenosis. C6-C7: Congenital canal stenosis. Mild disc desiccation and diffuse disc bulge. Mild facet and uncovertebral hypertrophy. Mild canal stenosis. Mild bilateral foraminal stenosis. C7-T1: Small left paracentral protrusion. Minimal canal stenosis. No foraminal stenosis. IMPRESSION: 1. Diffuse congenital canal stenosis with superimposed disc and facet disease as well as uncovertebral hypertrophy. 2. Multilevel canal stenoses, worst at C4-C5 and C5-C6, where there is minimal associated cord flattening. 3. Mild multilevel foraminal stenoses. Dictated by: Titus Kwon M.D. on 01/09/2019 at 13:28 Approved by: Titus Kwon M.D. on 01/09/2019 at 13:31
== END ==
PROVIDERS: Family Provider Physical Medicine & Rehabilitation; PCP Family Medicine; Visit Provider Family Medicine
DX: M50.11 Cervical disc disorder with radiculopathy, high cervical region (principal); M48.02 Spinal stenosis, cervical region
CPT/HCPCS: 72141

== ENCOUNTER → 2023-05-09 14:11 | Outpatient (CLI) | payer OTHER, SELFPAY | PROVIDERS: Family Provider Family Medicine; PCP Family Medicine; Referring Provider Physical Medicine & Rehabilitation; Visit Provider Physical Medicine & Rehabilitation | DX: M54.12 Radiculopathy, cervical region (principal) | CPT/HCPCS: 95886; 95912 ==

== ENCOUNTER 2023-05-23 09:13 | Outpatient (CLI) | payer OTHER, SELFPAY ==
[2023-05-23] VITALS (11 sets, daily range): BP systolic 68–102; BP diastolic 45–62; PULSE 59–69; RESP 12–18; TEMP 36.4; O2SAT 97–100
--- NOTE | 2023-05-23 09:17 | DI.RAD.S_ITS ---
PROCEDURE: PAIN C/T INTERLAMINAR INJECT INDICATIONS: SPINAL STENOSIS COMPARISON: [facility], MR, MR CERVICAL SPINE WITHOUT CONTRAST, 01/09/2023, 11:44. FINDINGS: Fluoroscopic spot filming was performed to verify placement of a spinal needle at the C6-C7 level, as labeled on the films. Appropriate location of the needle tip was confirmed by injection of iodinated contrast. IMPRESSION: No significant intraprocedural abnormality. Dictated by: Harvey Ames M.D. on 05/23/2023 at 13:28 Approved by: Harvey Ames M.D. on 05/23/2023 at 13:28
[2023-05-23] MEDS: MIDAZOLAM 2 MG/2 ML VIAL IV ×2 (09:50→09:57)
[2023-05-23] MEDS: BUPIVACAINE 0.25% (PF) VIAL 2 ML SUBCUT (09:55)
[2023-05-23] MEDS: DEXAMETHASONE 10 MG/ML VIAL 30 MG INJ (09:57)
[2023-05-23] MEDS: IOPAMIDOL 15 ML VIAL 3 ML INJ (09:58)
--- NOTE | 2023-05-23 10:15 | P.PCN_ITS ---
Date/Time/Diagnoses Date of procedure: 05/23/23 Time of procedure: 10:15 Pre-procedure diagnosis: 1. CERVICAL STENOSIS, 2. CERVICAL HNP WITH UPPER EXTREMITY RADICULAR FEATURES Post-procedure diagnosis: same Procedure Notes Procedure: 1. FLUORSCOPICALLY GUIDED CONTRAST CONTROLLED INTERLAMINAR EPIDURAL STEROID INJECTION - C6/7 TL HEBER Indications: Elysia is referred by Dr. Gann for treatment of Cervical HNP with Upper Extremity Paresthesias. Physician: Faheem Gonsales Total Fluoroscopy time (seconds): 36 Total sedation minutes: 19 Complications: none Procedure in detail & Post-procedure care: FINDINGS Cervical Stenosis due to disc deterioration and nerve root irritation and nerve root irritation DESCRIPTION OF PROCEDURE Fluoroscopically guided, contrast-controlled C6/7 translaminar epidural steroid injection with conscious sedation. Following review of allergy and review of potential side effects and complications, including, but not necessarily limited to, infection, allergic reaction, local tissue breakdown, temporary as well as permanent nerve injury, stroke, paralysis, and possible , the patient indicated that patient understood and agreed to proceed. An informed consent document was signed by the patient, witnessed by a nurse, and placed in the patient's chart. Additionally, other treatment options including modalities, medications, and physical therapy were reviewed with the patient. After review of previous anaesthesic history and IV conscious sedation the patient was deemed safe to proceed with today?s procedure with IV conscious sedation as ASA class II designation. Safety time-out was performed to confirm patient ID, procedure to be performed and site of procedure. IV sedation was accomplished with a combination of 4mg of Versed administered by the RN after DO order, titrated to patient comfort during the course of the procedure while the patient remained responsive to all verbal commands. In the prone position, following sterile prep and drape of the cervical region, the C6/7 translaminar space was identified fluoroscopically. The skin was anesthetized via a 25-gauge 1.5-inch needle with 1% lidocaine solution. At this point, a 25-gauge, 2.5-inch short bevel spinal needle was atraumatically introduced and advanced under fluoroscopic guidance into epidural space at the C6/7 translaminar space. Depth was confirmed on lateral view. Radiological data, including multiple fluoroscopic views of the cervical spine, reveal a spinal needle at the C6/7 translaminar space. Lateral views then show placement of the needle in the epidural space. Subsequent views show contrast material flowing superiorly and inferiorly in the epidural space. DSA fluoroscopy with live contrast injection, once again, confirmed no vascular or intrathecal uptake. At this point, using loss of resistance technique with saline and air, the epidural space was entered. Following negative aspiration, injection of approximately 1.5 cc of Isovue-200 with live fluoroscopy in the AP view confirmed epidural flow in the epidural space without vascular or intrathecal uptake observed. Subsequently, a test dose of 1cc of 1% lidocaine solution was injected and patient was observed for two minutes without signs or symptoms of complications, including abdominal pain, shortness of breath, bilateral upper or lower extremity weakness, nausea and vomiting, prior to steroid injection. At this point, 3cc or 30mg of dexamethasone was then injected without incident. The patient tolerated the procedure well without signs or symptoms of compli cations prior to being transferred to the recovery area for further monitoring, The patient was then transferred to the recovery area where they were observed for an appropriate period of time after the injection. The patient reported a VAS score of 8 prior to the procedure and a post-procedure VAS of 2. POST OP INSTRUCTIONS The patient was provided a Pain Log to continue to record their response to the target-specific procedure prior to follow-up visit with the referring provider. Additionally, specific post-injection care instructions and a contact number to our office were provided if concerns arise regarding possible complications associated with the procedure are suspected.
== END 2023-05-23 10:38 | disposition home or self-care (01) ==
LOC: RAD 09:14
PROVIDERS: Family Provider Family Medicine; PCP Family Medicine; Referring Provider Physical Medicine & Rehabilitation; Visit Provider Physical Medicine & Rehabilitation
DX: M48.02 Spinal stenosis, cervical region (principal); M50.123 Cervical disc disorder at C6-C7 level with radiculopathy
CPT/HCPCS: 62321; 99152; J1100; J2250; J3490

== ENCOUNTER 2023-11-07 08:36 | Outpatient (CLI) | payer OTHER, SELFPAY ==
[2023-11-07] VITALS (8 sets, daily range): BP systolic 94–111; BP diastolic 64–71; PULSE 57–61; RESP 12–18; TEMP 36.2; O2SAT 99–100
--- NOTE | 2023-11-07 09:11 | PC.NURSE ---
Patient reports that she has a sinus infection and was seen by a Dr about it on 11/05/23 and was given ABX for. Reports that it makes her stomach upset and that she is to start a new on today when she picks it up. Also reports that she had covid/flu about 2 weeks ago. Denies fever, chills and night sweats. MD aware and ok to proceed with injection
--- NOTE | 2023-11-07 09:15 | DI.RAD.S_ITS ---
PROCEDURE: PAIN C/T FACET INJ/BLK 1ST L INDICATIONS: Right-sided C5 C6 MBB COMPARISON: [facility], MR, MR CERVICAL SPINE WITHOUT CONTRAST, 01/09/2023, 11:44. FINDINGS: Fluoroscopic spot filming was performed to verify placement of spinal needles at the right C5 and C6 level(s), as labeled on the films. Appropriate location(s) of the needle tip(s) was confirmed by injection of iodinated contrast. IMPRESSION: Fluoroscopy for pain management. Dictated by: Oscar Ramos M.D. on 11/07/2023 at 10:51 Approved by: Oscar Ramos M.D. on 11/07/2023 at 10:52
[2023-11-07] MEDS: MIDAZOLAM 2 MG/2 ML VIAL IV (09:49)
[2023-11-07] MEDS: iopamidoL 15 ML VIAL 3 ML INJ (09:58)
[2023-11-07] MEDS: BUPIVACAINE 0.5% (PF) 10 ML VIAL 2 ML INJ (09:59)
--- NOTE | 2023-11-07 10:02 | P.PCN_ITS ---
Date/Time/Diagnoses Date of procedure: 11/07/23 Time of procedure: 10:03 Pre-procedure diagnosis: 1. FACET ARTHROPATHY 2. AXIAL NECK PAIN Post-procedure diagnosis: same Procedure Notes Procedure: 1. FLUOROSCOPICALLY GUIDED, CONTRAST-CONTROLLED RIGHT C5, C6 MBB. Indications: Elysia is referred by Dr. Gann for treatment of Axial Neck Pain Physician: Faheem Gonslaes Total Fluoroscopy time (seconds): 7 Total sedation minutes: 11 Complications: none Procedure in detail & Post-procedure care: DESCRIPTION OF PROCEDURE Fluoroscopically guided, contrast-controlled right C5, C6 Diagnostic Medial Branch Blocks. Following review of allergy and review of potential side effects and complications, including, but not necessarily limited to, infection, allergic reaction, local tissue breakdown, stroke, temporary or permanent nerve injury and paralysis, the patient indicated that the patient understood and agreed to proceed. An informed consent document was signed by the patient, witnessed by a nurse, and placed in the patient's chart. Additionally, other treatment options including medications, modalities, and physical therapy were reviewed with the patient. After review of previous anaesthesic history and IV conscious sedation the patient was deemed safe to proceed with today?s procedure with IV conscious sedation as ASA class II designation. Safety time-out was performed to confirm patient ID, procedure to be performed and site of procedure. IV sedation was accomplished with a combination of 2mg of Versed was administered by the RN after DO order, titrated to patient comfort during the course of the procedure while the patient remained responsive to all verbal commands Time-out was taken to identify the correct patient, procedure and side prior to starting the procedure. Lying in the prone position, the patient was prepped and draped in the usual sterile fashion using Chlorhexaidine scrub and a fenestrated drape. The level was determined under fluoroscopy. The skin was anesthetized via a 25-gauge 1.5-inch needle with 1% lidocaine solution into the corresponding right C5, C6 lateral pillars. At this point, a 22-gauge short bevel spinal needle was atraumatically introduced and advanced under fluoroscopic guidance to the anatomical pillars. Following negative aspiration, injections of approximately 0.1cc of Isovue 200 confirmed interarticular placement without vascular uptake. At this point, a total of 1cc of 0.5% was injected without complication into each of the corresponding medial branch anatomical location. The patient tolerated the procedure well without signs or symptoms of complications prior to transfer to the recovery area continued monitoring without incident. The patient was then transferred to the recovery area where they were observed for an appropriate period of time after the injection. The patient reported a VAS score of 7 prior to the procedure and a post- procedure VAS of 1. POST OP INSTRUCTIONS They were provided a Pain Log to continue to record their response to the target-specific procedure prior to their follow-up visit with their referring physician. Additionally, specific post-injection care instructions and a contact number to our office were provided if concerns arise regarding possible complications associated with the procedure are suspected.
== END 2023-11-07 10:25 | disposition home or self-care (01) ==
LOC: RAD 08:37
PROVIDERS: Family Provider Family Medicine; PCP Family Medicine; Referring Provider Physical Medicine & Rehabilitation; Visit Provider Physical Medicine & Rehabilitation
DX: M47.812 Spondylosis without myelopathy or radiculopathy, cervical region (principal)
CPT/HCPCS: 64490; 64491; 99152; J2250

== ENCOUNTER → 2024-03-09 10:41 | Outpatient (CLI) | payer OTHER, SELFPAY ==
--- NOTE | 2024-03-09 10:43 | DI.MRI.S_ITS ---
PROCEDURE: MR SHOULDER RT WO CON INDICATIONS: Pain in right shoulder TECHNIQUE: Noncontrast oblique coronal T2 fast spin echo with fat saturation, oblique sagittal T1 spin echo and T2 fast spin echo with fat saturation, axial T1 spin echo and T2 fast spin echo with fat saturation through the shoulder. COMPARISON: [facility] [place], CR, XR SHOULDER 2+ VIEWS RIGHT, 02/17/2024, 12:25. [facility], MR, SHOULDER WITHOUT CONTRAST, 06/20/2015, 16:59. FINDINGS: Image quality: Excellent. Rotator cuff: In the supraspinatus, there is low grade, bursal sided tear at the most anterior footprint (series 7, image 82). Severe tendinosis at the junction of the supraspinatus and infraspinatus, with interval development of associated low grade interstitial tear at the critical zone (series 7, image 11). Teres minor is unremarkable. Mild tendinosis of the subscapularis, without tear. No muscle edema or fatty atrophy. Bones and bursae: Mild degenerative changes of the acromioclavicular joint. Type 2 acromion. Trace subacromial/subdeltoid bursitis. No os acromiale. Mild subchondral cystic changes at the posterior aspect greater tuberosity, reactive. No acute fracture. Capsule and soft tissues: The labrum is intact. The extra-articular biceps tendon is intact. The intra-articular biceps tendon is unremarkable as well. No significant glenohumeral effusion. Thickening of the inferior glenohumeral ligament, raising concern for adhesive capsulitis. IMPRESSION: 1. Low-grade tear of the anterior footprint of the supraspinatus, new from prior exam. 2. Severe tendinosis at the junction of supraspinatus and infraspinatus with intervertebral and associated low-grade interstitial tear. 3. Findings suggestive of adhesive capsulitis. Dictated by: Eleonora Calderón M.D. on 03/09/2024 at 12:00 Approved by: Eleonora Calderón M.D. on 03/09/2024 at 12:11
== END ==
LOC: MRI 10:41
PROVIDERS: Family Provider Family Medicine; PCP Family Medicine; Referring Provider Orthopaedic Surgery; Visit Provider Orthopaedic Surgery
DX: M75.111 Incomplete rotator cuff tear or rupture of right shoulder, not specified as traumatic (principal); M25.511 Pain in right shoulder
CPT/HCPCS: 73221

== ENCOUNTER 2025-04-27 09:05 | Outpatient (CLI) | payer OTHER, SELFPAY ==
[2025-04-27] VITALS (8 sets, daily range): BP systolic 94–113; BP diastolic 61–87; PULSE 54–65; RESP 16; TEMP 36.6; O2SAT 95–100
[2025-04-27] MEDS: MIDAZOLAM 2 MG/2 ML VIAL IV (10:18)
[2025-04-27] MEDS: iopamidoL 15 ML VIAL 3 ML INJ (10:22)
[2025-04-27] MEDS: BUPIVACAINE 0.5% (PF) 10 ML VIAL 2 ML INJ (10:23)
--- NOTE | 2025-04-27 10:34 | P.PCN_ITS ---
Date/Time/Diagnoses Date of procedure: 04/27/25 Time of procedure: 10:34 Pre-procedure diagnosis: 1. FACET ARTHROPATHY 2. AXIAL NECK PAIN Post-procedure diagnosis: same Procedure Notes Procedure: 1. FLUOROSCOPICALLY GUIDED, CONTRAST-CONTROLLED RIGHT C5 and C6 MBB LA. Indications: Elysia is referred by Dr. Lee for treatment of Axial Neck Pain Physician: Faheem Gonsales Total Fluoroscopy time (seconds): 6 Total sedation minutes: 11 Complications: none Procedure in detail & Post-procedure care: DESCRIPTION OF PROCEDURE Fluoroscopically guided, contrast-controlled right C5 and C6 medial branch blocks LA. Following review of allergy and review of potential side effects and complications, including, but not necessarily limited to, infection, allergic reaction, local tissue breakdown, stroke, temporary or permanent nerve injury and paralysis, the patient indicated that the patient understood and agreed to proceed. An informed consent document was signed by the patient, witnessed by a nurse, and placed in the patient's chart. Additionally, other treatment options including medications, modalities, and physical therapy were reviewed with the patient. After review of previous anaesthesic history and IV conscious sedation the patient was deemed safe to proceed with today?s procedure with IV conscious sedation as ASA class II designation. Safety time-out was performed to confirm patient ID, procedure to be performed and site of procedure. IV sedation was accomplished with a combination of 2mg of Versed was administered by the RN after DO order, titrated to patient comfort during the course of the procedure while the patient remained responsive to all verbal commands In the prone position, following sterile prep and drape of the cervical spine region, the posterior aspect of the right C5 and C6 medial branchs were identified fluoroscopically. The skin was anesthetized via a 25-gauge 1.5-inch needle with 1% lidocaine solution into the corresponding medial branchs. At this point, a 25-gauge 2.5-inch spinal needle was atraumatically introduced and advanced under fluoroscopic guidance into the corresponding locations. Following negative aspiration, injections of approximately 0.1cc of Isovue 200 confirmed placement without vascular uptake. At this point, a total of 0.5cc of 0.5% bupivicaine solution was injected without complication into each of the corresponding medial branches. The procedure tolerated the procedure well without signs or symptoms of complications prior to transfer to the recovery area continued monitoring without incident. The patient was then transferred to the recovery area where they were observed for an appropriate period of time after the injection. The patient reported a VAS score of 8 prior to the procedure and a post-proc edure VAS of 1. POST OP INSTRUCTIONS They were provided a Pain Log to continue to record their response to the target-specific procedure prior to their follow-up visit with their referring physician. Additionally, specific post-injection care instructions and a contact number to our office were provided if concerns arise regarding possible complications associated with the procedure are suspected.
== END 2025-04-27 10:50 | disposition home or self-care (01) ==
PROVIDERS: Family Provider Family Medicine; PCP Family Medicine; Referring Provider Physical Medicine & Rehabilitation; Visit Provider Physical Medicine & Rehabilitation
DX: M47.812 Spondylosis without myelopathy or radiculopathy, cervical region (principal); M54.2 Cervicalgia
CPT/HCPCS: 64490; 99152; J2250

== ENCOUNTER 2025-09-28 10:43 | Outpatient (CLI) | payer OTHER, SELFPAY ==
[2025-09-28] VITALS (13 sets, daily range): BP systolic 93–112; BP diastolic 57–67; PULSE 57–66; RESP 15–17; TEMP 36.7; O2SAT 98–100
--- NOTE | 2025-09-28 12:15 | P.PCN_ITS ---
Date/Time/Diagnoses Date of procedure: 09/28/25 Time of procedure: 12:16 Pre-procedure diagnosis: 1. FACET ARTHROPATHY 2. AXIAL NECK PAIN Post-procedure diagnosis: same Procedure Notes Procedure: 1. FLUOROSCOPICALLY GUIDED RIGHT C5, C6 MB RFA. Indications: Elysia is referred for treatment of Axial Neck Pain Physician: Faheem Gonsales Total Fluoroscopy time (seconds): 13 Total sedation minutes: 39 Complications: none Procedure in detail & Post-procedure care: DESCRIPTION OF PROCEDURE Fluoroscopically guided, contrast-controlled right C5, C6 Medial Branch RFA. Following review of allergy and review of potential side effects and complications, including, but not necessarily limited to, infection, allergic reaction, local tissue breakdown, stroke, temporary or permanent nerve injury and paralysis, the patient indicated that the patient understood and agreed to proceed. An informed consent document was signed by the patient, witnessed by a nurse, and placed in the patient's chart. Additionally, other treatment options including medications, modalities, and physical therapy were reviewed with the patient. After review of previous anaesthesic history and IV conscious sedation the patient was deemed safe to proceed with today?s procedure with IV conscious sedation as ASA class II designation. Safety time-out was performed to confirm patient ID, procedure to be performed and site of procedure. IV sedation was accomplished with a combination of 3mg of Versed was administered by the RN after DO order, titrated to patient comfort during the course of the procedure while the patient remained responsive to all verbal commands Time-out was taken to identify the correct patient, procedure and side prior to starting the procedure. Lying in the prone position, the patient was prepped and draped in the usual sterile fashion using Chlorhexaidine scrub and a fenestrated drape. The level was determined under fluoroscopy. The skin was anesthetized via a 25-gauge 1.5-inch needle with 1% lidocaine solution into the corresponding right C5 and C6 lateral pillars. After local infiltration using 1% lidocaine, under fluoroscopic guidance, a 10-cm RF insulated needle with a 10-mm active tip was positioned parallel to the junction of the right C5 and C6 lateral pillar and the superior articulating process where medial branch resides. Needle placement was confirmed with motor stimulation of .5v on the right which produced local stimulation without radicular component. The stimulation was then increased to 2v with, once again, only local stimulation without radicular component. This was then followed by two discreet lesions performed at 60 degrees Celsius for 60 seconds each. The patient tolerated the procedure well without signs or symptoms of complications prior to transfer to the recovery area continued monitoring without incident. The patient was then transferred to the recovery area where they were observed for an appropriate period of time after the injection. The patient reported a VAS score of 7 prior to the procedure and a post- procedure VAS of 1. POST OP INSTRUCTIONS They were provided a Pain Log to continue to record their response to the target-specific procedure prior to their follow-up visit with their referring physician. Additionally, specific post-injection care instructions and a contact number to our office were provided if concerns arise regarding possible complications associated with the procedure are suspected.
[2025-09-28] MEDS: MIDAZOLAM 2 MG/2 ML VIAL IV (12:21)
[2025-09-28] MEDS: SODIUM CHLORIDE 0.9% 500 ML IV (12:43)
[2025-09-28] MEDS: MIDAZOLAM 2 MG/2 ML VIAL 1 MG IV (12:49)
== END 2025-09-28 13:23 | disposition home or self-care (01) ==
LOC: RAD 10:43
PROVIDERS: Referring Provider Physical Medicine & Rehabilitation; Visit Provider Physical Medicine & Rehabilitation
DX: M47.812 Spondylosis without myelopathy or radiculopathy, cervical region (principal)
CPT/HCPCS: 64633; 64634; 99152; 99153; J2250; J7040